=== PATIENT | female | born 1975 | race Caucasian/White ===

== ENCOUNTER → 2020-05-02 12:49 | Outpatient (CLI) | payer OTHER, SELFPAY ==
--- NOTE | ~2020-05-02 | XR_ITS ---
EXAMINATION:XR cervical spine min 6V DATE: 05/02/2020 14:23 INDICATION: Neck pain TECHNIQUE: AP, lateral, lateral swimmers, bilateral oblique, and odontoid views of the cervical spine are provided. COMPARISON: None FINDINGS: There is mild reversal of the normal cervical lordosis. The odontoid is intact. No fracture is identified. There is moderate loss of intervertebral disc space height at C5-6. Small degenerativ e osteophytes project from the anterior endplates of multiple vertebral bodies. There is mild uncover tebral joint osteoarthritis at C5-6. Prevertebral soft tissues are normal. IMPRESSION: 1. Mild cervical spondylosis without acute findings. Reviewed, dictated and finalized at location A.
== END ==
PROVIDERS: PCP Family Medicine; Visit Provider Chiropractor
DX: M54.2 Cervicalgia (principal); M47.812 Spondylosis without myelopathy or radiculopathy, cervical region
CPT/HCPCS: 72052

== ENCOUNTER → 2020-05-14 11:23 | Outpatient (CLI) | payer OTHER, SELFPAY ==
--- NOTE | ~2020-05-14 | MR_ITS ---
EXAMINATION: MR cervical spine wo con DATE: 05/14/2020 12:20 INDICATION: Left-sided neck pain radiating down the left arm with numbness and tingling. TECHNIQUE: Magnetic resonance imaging (MRI) of the cervical spine was performed without intravenous c ontrast. Sequences included sagittal T2-weighted FSE, sagittal T2-weighted FS FSE, sagittal T1-weight ed FSE, axial MERGE, and axial T2-weighted FSE. COMPARISON: Cervical spine radiographs 05/02/2020 FINDINGS: There is hypolordosis of lumbar spine. There is 7 degrees dextrocurvature of the cervicotho racic spine. Vertebral body heights are normal. There is moderately decreased disc height at C5-C6. T he spinal cord signal intensity is normal. The following disc levels are specifically discussed: C2-C3: The disc does not extend beyond the endplate margin. There is moderate right and severe left u ncovertebral joint osteoarthritis. There is mild left facet joint osteoarthritis. There is no neural foraminal stenosis. There is no central canal stenosis. C3-C4: There is a left central and foraminal zone extrusion. There is mild left uncovertebral joint o steoarthritis. There is mild right and moderate left facet joint osteoarthritis. There is moderate le ft neural foraminal stenosis. There is no central canal stenosis. C4-C5: The disc is bulging. There is mild bilateral uncovertebral joint osteoarthritis. There is mode rate right and mild left facet joint osteoarthritis. There is mild right neural foraminal stenosis. T here is mild central canal stenosis. C5-C6: The disc is bulging. There is severe bilateral uncovertebral joint osteoarthritis. There is mi ld right and moderate left facet joint osteoarthritis. There is mild right and moderate left neural f oraminal stenosis. There is mild central canal stenosis with ventral indentation of the spinal cord. C6-C7: The disc is bulging. There is mild right and moderate left uncovertebral joint osteoarthritis. There is mild bilateral facet joint osteoarthritis. There is mild left neural foraminal stenosis. Th ere is mild central canal stenosis. C7-T1: The disc does not extend beyond the endplate margin. There is no uncovertebral joint osteoarth ritis. There is mild right and severe left facet joint osteoarthritis. There is mild left neural fora amparo stenosis. There is no central canal stenosis. IMPRESSION: 1. Moderate cervical spondylosis. Reviewed, dictated and finalized at location A.
== END ==
PROVIDERS: Visit Provider Chiropractor
DX: M47.22 Other spondylosis with radiculopathy, cervical region (principal)
CPT/HCPCS: 72141

== ENCOUNTER 2021-12-11 04:22 | Emergency (ER) | payer OTHER, SELFPAY ==
[2021-12-11 04:22] VITALS: BP 120/82; PULSE 90; RESP 18; TEMP 36.4; O2SAT 100
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
[2021-12-11] MEDS: ONDANSETRON INJ 4 MG/2 ML VIAL IV PUSH (04:39)
[2021-12-11] MEDS: SODIUM CHLORIDE 0.9% IV 1,000 ML 999 ML IV CONT (04:39)
[2021-12-11 04:47] LABS: Basophils Absolute Auto 0.1 K/mm3 (0.0-0.1); Basophils Percent Auto 0.9 % (0.2-1.2); Eosinophils Absolute Auto 0.5 K/mm3 (0-0.3); Eosinophils Percent Auto 5.7 % (0-4.4); Hematocrit 46.5 % (37.0-47.0); Hemoglobin 15.4 g/dL (12.0-15.0); Immature Granulocyte Absolute 0.03 K/mm3 (0.00-0.031); Immature Granulocyte Percent A 0.3 % (0-0.5); Lymphocytes Absolute Auto 3.28 K/mm3 (0.9-3.2); Lymphocytes Percent Auto 36.5 % (18.3-44.2); Mean Corpuscular HGB Conc 33.1 g/dl (32-36); Mean Corpuscular Hemoglobin 33.3 pg (26-34); Mean Corpuscular Volume 100.4 fl (80-100); Mean Platelet Volume 8.1 fl (7.4-10.4); Monocytes Absolute Auto 0.5 K/mm3 (0.1-0.6); Monocytes Percent Auto 5.6 % (2.6-8.5); Neutrophils Absolute Auto 4.6 K/mm3 (1.3-6.7); Platelet Count Result 350 k/mm3 (150-375); Red Blood Count 4.63 M/mm3 (4.2-5.4); Red Cell Distribution Width 12.1 % (11.5-14.5)
[2021-12-11 04:59] LABS: Alanine Aminotransferase 18 U/L (4-35); Albumin Level 4.8 g/dL (3.5-5.1); Alkaline Phosphatase 86 U/L (38-126); Anion Gap 12 mmol/L (8-16); Aspartate Amino Transferase 29 U/L (14-36); Bilirubin,Total 0.2 mg/dL (0.2-1.3); Blood Urea Nitrogen 6 mg/dL (7-17); Calcium 8.4 mg/dL (8.4-10.2); Carbon Dioxide 26 mmol/L (22-30); Chloride 103 mmol/L (98-107); Estimated CRCL calculation 64 ml/min; Estimated Glomerular Filt Rate > 60; Glucose 124 mg/dL (65-110); Potassium 4.2 mmol/L (3.4-5.0); Sodium 141 mmol/L (137-145)
[2021-12-11 05:06] LABS: Acetaminophen < 10 ug/mL (10-30); Salicylate < 1.0 mg/dL (2-20)
[2021-12-11 05:32] LABS: Ethanol 367 mg/dL (<10)
[2021-12-11 06:21] VITALS: BP 90/53; PULSE 95; RESP 16; O2SAT 100
[2021-12-11 07:18] VITALS: BP 103/73; PULSE 106; RESP 19; O2SAT 94
--- NOTE | 2021-12-11 07:19 | PC.NURSE ---
Assumed care of pt at this time, bedside report received from Tanmay SHARMA, pt is alert and VSS, pt assisted to restroom in order to attempt u/a sample.
[2021-12-11 07:38] LABS: Add Urine Microscopic? YES; Appearance Urine Clear (Clear); Bacteria Urine Trace /hpf; Bilirubin Urine Negative (Negative); Blood Urine 3+ (Negative); Color Urine Yellow (Yellow); Glucose Urine UA Negative (Negative); Ketones Urine Negative (Negative); Leukocyte Esterase Ur Negative LEU/UL (Negative); Mucus Urine Rare /lpf; Nitrate Urine Negative (Negative); Protein Urine Negative (Negative); Specific Grav Ur 1.009 (1.001-1.035); Squamous Epithelial Cell Urine Occasional /hpf (Few); Urobilinogen Urine Negative mg/dL (<2.0); WBC Urine 0-3 /hpf
[2021-12-11 07:48] LABS: Amphetamine Screen Urine Negative (Negative); Barbiturate Screen Urine Negative (Negative); Benzodiazepines Screen Urine Negative (Negative); Cannabinoid Screen Urine Negative (Negative); Cocaine Screen Urine Negative (Negative); Methadone Screen Urine Negative (Negative); Opiate Screen Urine Negative (Negative); Phencyclidine Screen Urine Negative (Negative)
[2021-12-11 08:09] VITALS: BP 109/80; PULSE 98; RESP 18; O2SAT 95
== END 2021-12-11 08:34 | disposition home or self-care (01) ==
PROVIDERS: Emergency Provider Emergency Medicine; PCP Family Medicine
DX: F10.220 Alcohol dependence with intoxication, uncomplicated (principal); Y90.8 Blood alcohol level of 240 mg/100 ml or more
CPT/HCPCS: 36415; 80053; 80307; 81001; 81025; 84443; 85025; 96361; 96374; 99284; J2405; J7030

== ENCOUNTER → 2022-01-22 15:28 | Outpatient (CLI) | payer OTHER, SELFPAY ==
--- NOTE | ~2022-01-22 | XR_ITS ---
XR chest 2V DATE: 01/22/2022 15:47 INDICATION: Preoperative evaluation TECHNIQUE: 2 views COMPARISON: None FINDINGS: Normal heart size. No hilar or mediastinal enlargement. Bilateral hyperinflation. No pulmon lisa infiltrate or consolidation, pleural effusion or pulmonary vascular congestion or pneumothorax. IMPRESSION: Bilateral hyperinflation; no active cardiopulmonary disease Reviewed, dictated and finalized at location B.
== END ==
PROVIDERS: PCP Family Medicine
DX: Z01.818 Encounter for other preprocedural examination (principal); R91.8 Other nonspecific abnormal finding of lung field
CPT/HCPCS: 71046